=== PATIENT | male | born 2000 | race Hispanic/Latino ===

== ENCOUNTER 2024-05-02 15:08 | Emergency (ER) | payer SELFPAY ==
[2024-05-02] MEDS ORDERED: Ketorolac Tromethamine 30 MG (1 mL) VIAL ONE (15:42)
== END 2024-05-02 16:37 | disposition home or self-care (01) ==
LOC: CSHERS 15:08
DX: B34.9 Viral infection, unspecified (principal)
CPT/HCPCS: 87081; 87430; 96372; 99283; J1885